=== PATIENT | female | born 1970 | race Caucasian/White ===

== ENCOUNTER 2017-09-14 16:32 | Emergency (ER) | payer SELFPAY ==
[~2017-09-14] VITALS: Ht 160 cm; Wt 64.4 kg
[~2017-09-14 16:32] MED LIST: ANAPROX DS550 MG PO; BIAXIN500 MG PO; CATAFLAM50 MG PO; CIPRODEX 0.3%-7.5 ML OT; CIPROFLOXACIN500 MG PO; DAYPRO600 M1 PO; HYDROCODONE BIT1 T11 PO; NAPROSYN500 MG PO; ROBAXIN750 MG PO; SKELAXIN800 MG PO; TRAMADOL HCL50 MG PO; ZOFRAN4 MG PO
[2017-09-14 17:00] LABS: BASO # 0.1 10*3/uL (0.0-0.1); BASO % 0.5 % (0.0-1.0); EOS # 0.2 10*3/uL (0.0-0.4); EOS % 1.7 % (1.0-4.0); HEMATOCRIT 43.5 % (37.0-47.0); HEMOGLOBIN 14.4 g/dl (12.0-16.0); LYMPH # 3.8 10*3/uL (1.3-4.4); LYMPH % 27.8 % (27.0-41.0); MEAN CELL VOLUME 92.9 fl (81.0-99.0); MEAN CORPUSCULAR HGB 30.8 pg (27.0-31.0); MEAN CORPUSCULAR HGB CONC 33.1 g/dl (33.0-37.0); MEAN PLATELET VOLUME 10.4 fl (9.6-12.3); MONO % 7.5 % (3.0-9.0); NEUT # 8.5 10*3/uL (2.3-7.9); NEUT % 62.1 % (47.0-73.0); PLATELET COUNT AUTOMATED 296 10*3/uL (130-400); RED BLOOD COUNT 4.68 10*6/uL (4.10-5.10); RED CELL DISTRI WIDTH 13.1 % (0-14.5); WHITE BLOOD COUNT 13.7 10*3/uL (4.8-10.8)
[2017-09-14 17:16] LABS: ALKALINE PHOSPHATASE 96 U/L (45-117); BUN 10 mg/dl (7-24); CHLORIDE 107 mmol/L (98-107); CREATININE 0.72 mg/dL (0.55-1.02); POTASSIUM 3.9 mmol/L (3.5-5.1); SGOT/AST 8 IU/L (3-35); SGPT/ALT 17 U/L (12-78); SODIUM 141 mmol/L (136-145); TOTAL PROTEIN 7.7 gm/dL (6.4-8.2)
[2017-09-14] MEDS ORDERED: ZOFRAN4 MG PO (18:59)
[2017-09-14] MEDS ORDERED: CLINDAMYCIN150 MG PO (18:59)
[2017-09-14] MEDS ORDERED: AVPAK AZITHROM250 MG PO (18:59)
[2017-09-14] MEDS ORDERED: NAPROSYN500 MG PO (18:59)
== END 2017-09-14 19:20 | disposition home or self-care (01) ==
LOC: ED 16:32
PROVIDERS: Nurse Practitioner Family
DX: I88.8 Other nonspecific lymphadenitis (principal); R03.0 Elevated blood-pressure reading, without diagnosis of hypertension; Z88.0 Allergy status to penicillin; Z88.1 Allergy status to other antibiotic agents; Z98.51 Tubal ligation status